=== PATIENT | male | born 1985 | race Two or more races ===

== ENCOUNTER 2017-11-12 09:59 | Inpatient (IN) | payer MEDICAID ==
[~2017-11-12] VITALS: Ht 188 cm; Wt 124.1 kg
[2017-11-12 10:05] VITALS: Ht 188 cm; Wt 124.1 kg
[2017-11-12 12:32] LABS: BASOPHIL % 0.3 % (0-2); PLATELET COUNT 200 x10^3mcL (130-400); RED CELL DISTRIBUTION WIDTH 13.4 % (11.5-14.5)
[2017-11-12 13:14] LABS: CALCIUM 9.3 mg/dL (8.5-10.1); CARBON DIOXIDE 23.1 mmol/L (21-32); CHLORIDE SERUM 101 mmol/L (98-107); CREATININE SERUM 0.8 mg/dL (0.7-1.3); GFR1 > 60 mL/min; GLUCOSE SERUM 119 mg/dL (74-106); POTASSIUM SERUM 3.8 mmol/L (3.5-5.1); SODIUM SERUM 135 mmol/L (136-145)
[2017-11-12 13:19] LABS: ALBUMIN 4.2 g/dL (3.4-5.0); ALKALINE PHOSPHATASE 110 U/L (46-116); ALT/SGPT 171 U/L (16-63); AST/SGOT 54 U/L (15-37); BILIRUBIN TOTAL 0.33 mg/dL (0.20-1.00); LIPASE 107 IU/L (73-393); TOTAL PROTEIN, SERUM 8.9 g/dL (6.4-8.2)
[2017-11-12 13:24] LABS: UA SPECIFIC GRAVITY <=1.005 (1.005-1.035); microscopic required? YES; urine erythrocyte TRACE (NEGATIVE)
[2017-11-12 15:09] VITALS: BP 129/71
[2017-11-12 15:27] LABS: MAGNESIUM 2.2 mg/dL (1.8-2.4); PHOSPHOROUS 3.2 mg/dL (2.5-4.9)
[2017-11-12 15:33] LABS: T3 TOTAL 1.23 ng/mL
[2017-11-12 15:53] LABS: FREE T4 1.01 ng/dL (0.76-1.46); FREE THYROXINE INDEX 2.8 ug/dL (1.4-4.5); T4(THYROXINE) 9.3 ug/dL (4.7-13.3)
[2017-11-12 20:50] VITALS: BP 105/57
[2017-11-13 06:10] VITALS: BP 106/63
[2017-11-13 10:59] LABS: ALBUMIN 3.4 g/dL (3.4-5.0); ALKALINE PHOSPHATASE 96 U/L (46-116); ALT/SGPT 171 U/L (16-63); AST/SGOT 96 U/L (15-37); BILIRUBIN TOTAL 0.44 mg/dL (0.20-1.00); CALCIUM 8.2 mg/dL (8.5-10.1); CHLORIDE SERUM 108 mmol/L (98-107); CREATININE SERUM 0.8 mg/dL (0.7-1.3); GFR1 > 60 mL/min; GLUCOSE SERUM 124 mg/dL (74-106); MAGNESIUM 1.8 mg/dL (1.8-2.4); PHOSPHOROUS 2.9 mg/dL (2.5-4.9); POTASSIUM SERUM 4.1 mmol/L (3.5-5.1); SODIUM SERUM 141 mmol/L (136-145); TOTAL PROTEIN, SERUM 7.4 g/dL (6.4-8.2)
[2017-11-13 11:08] LABS: BASOPHIL % 0.3 % (0-2); PLATELET COUNT 191 x10^3mcL (130-400); RED CELL DISTRIBUTION WIDTH 13.9 % (11.5-14.5)
[2017-11-13 17:26] VITALS: BP 121/69
[2017-11-13 20:56] VITALS: BP 119/62
[2017-11-14 05:17] VITALS: BP 126/70
[2017-11-14 06:08] LABS: BASOPHIL % 0.3 % (0-2); PLATELET COUNT 179 x10^3mcL (130-400); RED CELL DISTRIBUTION WIDTH 13.8 % (11.5-14.5)
[2017-11-14 06:23] LABS: CALCIUM 8.6 mg/dL (8.5-10.1); CARBON DIOXIDE 23.2 mmol/L (21-32); CHLORIDE SERUM 108 mmol/L (98-107); CREATININE SERUM 0.7 mg/dL (0.7-1.3); GFR1 > 60 mL/min; GLUCOSE SERUM 114 mg/dL (74-106); MAGNESIUM 1.9 mg/dL (1.8-2.4); PHOSPHOROUS 3.5 mg/dL (2.5-4.9); POTASSIUM SERUM 3.7 mmol/L (3.5-5.1); SODIUM SERUM 144 mmol/L (136-145)
[2017-11-14 08:43] VITALS: BP 116/77
[2017-11-14] MEDS ORDERED: NORCO1 TA1 PO (12:33)
[2017-11-14 12:47] VITALS: BP 116/77
== END 2017-11-14 15:59 | disposition home or self-care (01) | DRG 263 ==
LOC: ED 09:59 → MU 14:03
PROVIDERS: Emergency Medicine; Internal Medicine; Surgery
PROC: 0FT44ZZ Resection of Gallbladder, Percutaneous Endoscopic Approach (ICD-10-PCS; principal; 2017-11-13 08:00)
DX: K80.00 Calculus of gallbladder with acute cholecystitis without obstruction (principal); F12.21 Cannabis dependence, in remission; R73.03 Prediabetes; F15.21 Other stimulant dependence, in remission; F14.11 Cocaine abuse, in remission; Z68.35 Body mass index [BMI] 35.0-35.9, adult
CPT/HCPCS: 84439; J0295; J0330; J0690; J0696; J1170; J1885; J2405; J2704; J2710; J3010; J3490; J7030; J7120; Q0092

== ENCOUNTER 2018-12-10 19:11 | Emergency (ER) | payer MEDICAID ==
[~2018-12-10] VITALS: Ht 185.4 cm; Wt 127.5 kg
[~2018-12-10 19:11] MED LIST: NORCO1 TA1 PO
[2018-12-10 19:24] VITALS: Ht 185.4 cm; Wt 127.5 kg
[2018-12-10 20:50] VITALS: BP 150/95
== END 2018-12-10 20:50 | disposition home or self-care (01) ==
LOC: ED 19:11
DX: R51 Headache (principal); R11.0 Nausea; H53.149 Visual discomfort, unspecified
CPT/HCPCS: J1885